=== PATIENT | male | born 2000 | race Caucasian/White ===

== ENCOUNTER 2020-05-04 10:39 | Observation (INO) | payer OTHER ==
[~2020-05-04] VITALS: Ht 188 cm; Wt 98.5 kg
[2020-05-04] MEDS ORDERED: NS 1,000 ML IV ONE (12:30)
[2020-05-04 13:52] LABS: BASO % 0.2 % (0.0-1.0); EOS % 0.2 % (0.0-3.0); HEMATOCRIT 44.5 % (42.0-52.0); HEMOGLOBIN 14.8 g/dl (13.5-17.5); LYMPH # 1.4 10^3/uL (1.5-5.0); LYMPH % 8.9 % (24.0-44.0); MEAN CORPUSCULAR HGB CONC 33.3 g/dl (32.0-36.5); MEAN CORPUSCULAR VOLUME 84.3 fl (80.0-96.0); MONO # 1.4 10^3/uL (0.0-0.8); MONO % 8.8 % (0.0-5.0); NEUTROPHILS # 13.2 10^3/uL (1.5-8.5); NEUTROPHILS % 81.4 % (36.0-66.0); PLATELET COUNT, AUTOMATED 195 10^3/uL (150-450); RED BLOOD COUNT 5.28 10^6/uL (4.30-6.10); WHITE BLOOD COUNT 16.2 10^3/uL (4.0-10.0)
[2020-05-04 14:15] LABS: BLOOD UREA NITROGEN 11 MG/DL (7-18); CALCIUM LEVEL 9.3 MG/DL (8.5-10.1); CARBON DIOXIDE LEVEL 28 MEQ/L (21-32); CHLORIDE LEVEL 101 MEQ/L (98-107); GLUCOSE, FASTING 89 MG/DL (70-100); POTASSIUM SERUM 3.9 MEQ/L (3.5-5.1); SODIUM LEVEL 138 MEQ/L (136-145)
[2020-05-04] MEDS ORDERED: ISOVUE-370 76% 100ML VIAL As Ordered ONE (14:46)
[2020-05-04] MEDS ORDERED: AMPICILLIN SOD/SULBACTAM SOD 3 GM in D5W MINI-BAG PLUS 100 ML IV ONE (15:15)
--- NOTE | 2020-05-04 15:21 | REP ---
INDICATION: peritonsillar abscess. COMPARISON: None. TECHNIQUE: Bolus 75 mL Isovue 370 scanning through the and neck with coronal and sagittal reconstructions. FINDINGS: The left side of the oropharynx demonstrates tonsillar fullness and a 2.3 x 2.2 x 2.1 cm hypodensity within the tonsil displaces portion of the airway towards the right and represents a peritonsillar abscess. Right tonsil was unremarkable. At night pad is slightly thickened. I do not see significant prevertebral swelling. The nasopharynx his mildly narrowed inferiorly by a thickened edematous uvula. The oropharynx is patent. The hypopharynx grossly intact larynx and subglottic trachea intact. The submandibular and parotid glands are unremarkable. There is a jugulodigastric and anterior cervical chain adenopathy in the carotid space left greater than right as reactive nodes. Bone windows show reversal of cervical lordosis in the upper cervical spine centered at C4. No fracture or destructive lesion craniocervical junction intact the maxilla and mandible were grossly intact skull base was unremarkable mastoid and sphenoid sinuses clear posterior ethmoid air cells with some mucosal thickening there is minor mucosal thickening in the floor of the left maxillary sinus. Frontal sinuses are clear IMPRESSION: There is a 2.3 x 2.2 x 2.1 cm left peritonsillar abscess with edema extending into the uvula down the left lateral oropharyngeal wall. Displaces the airway to towards the right but the oropharynx is a patent airway. The nasopharyngeal airway inferiorly is slightly narrowed by edematous uvula. Adjacent adenopathy in the left jugulodigastric and anterior cervical chain at the carotid space. No other significant finding. <Electronically signed by Troy Bernal > 05/04/20 2116
[2020-05-04] MEDS ORDERED: dexameTHASONE 20MG/5ML VIAL (J1100 PER 1MG) IV ONE (15:30)
--- NOTE | 2020-05-04 15:50 | HPEPDOC ---
General Date of Admission 05/04/20 Date of Service: May 04, 2020 Chief Complaint The patient is a 19-year-old male admitted with a reason for visit of Sore Throat. Source: Patient Exam Limitations: No limitations Timing/Duration: Day(s) Severity: Moderate History of Present Illness Patient is 19 years old male without significant past medical history presented to the hospital with difficulties in swallowing. Patient stated that difficulties in swallowing started 5-6 days ago associated with chills and montiel bmandibular area swelling. In ER CT was done and showed There is a 2.3 x 2.2 x 2.1 cm left peritonsillar abscess with edema extending into the uvula down the left lateral oropharyngeal wall. Displaces the airway to towards the right but the oropharynx is a patent airway. The nasopharyngeal airway inferiorly is slightly narrowed by edematous uvula. Adjacent adenopathy in the left jugulodigastric and anterior cervical chain at the carotid space. No other significant finding. ENT Dr. Neil was contacted by ER, he will do incision and drainage today. Home Medications No Active Prescriptions or Reported Meds Allergies Coded Allergies: No Known Allergies (Unverified , 05/04/20) Past Medical History Medical History No past medical history Family History I personally reviewed, family history and found not pertinent Social History * Smoker: Denies Alcohol: Denies Drugs: denies A-FIB/CHADSVASC A-FIB History Current/History of A-Fib/PAF?: No Current PO Anticoag Therapy: No Review of Systems Constitutional: Reports: Chills; Denies: Fever Eyes: Denies: Pain ENT: Reports: Sore Throat (difficulties in swallowing), Other Symptoms; Denies: Head Aches Skin: Denies: Rash, Lesions Pulmonary: Denies: Dyspnea Cardiovascular: Denies: Chest Pain, Palpitations Gastrointestinal: Denies: Nausea Genitourinary: Denies: Dysuria, Frequency Hematologic: Denies: Bruising Endocrine: Denies: Polyphagia Musculoskeletal: Denies: Back Pain, Shoulder Pain Neurological: Denies: Weakness Psych: Reports: Mood Normal Physical Examination General Exam: Positive: Alert, Cooperative Eye Exam: Positive: PERRLA ENT Exam: Positive: Atraumatic, Pharyngeal Edema (left-sided) Neck Exam: Positive: Supple; Negative: JVD Chest Exam: Positive: Clear to auscultation Heart Exam: Positive: Rate Normal Telemetry: Positive: No significant arrhythmia Abdomen Exam: Positive: Normal bowel sounds Extremity Exam: Negative: Clubbing, Cyanosis Skin Exam: Positive: Nl turgor and temperature Neuro Exam: Positive: Strength at 5/5 X4 ext, Cranial Nerves 3-12 NL Psych Exam: Positive: Mental status NL Vital Signs Vital Signs Date Time Temp Pulse Resp B/P (MAP) Pulse Ox O2 Delivery O2 Flow Rate FiO2 05/04/20 13:53 05/04/20 10:39 99.0 93 18 99 Room Air Laboratory Data Labs 24H Laboratory Tests 2 05/04/20 13:05: Immature Granulocyte % (Auto) 0.5, Neutrophils (%) (Auto) 81.4H, Lymphocytes (%) (Auto) 8.9L, Monocytes (%) (Auto) 8.8H, Eosinophils (%) (Auto) 0.2, Basophils (%) (Auto) 0.2, Neutrophils # (Auto) 13.2H, Lymphocytes # (Auto) 1.4L, Monocytes # (Auto) 1.4H, Eosinophils # (Auto) 0.0, Basophils # (Auto) 0.0, Nucleated Red Blood Cells % (auto) 0.0, Anion Gap 9, Calcium Level 9.3, Coronavirus (COVID- 19)(PCR) NEGATIVE CBC/BMP Laboratory Tests 05/04/20 13:05 Microbiology Microbiology 05/04/20 Blood Culture, Received Pending 05/04/20 Blood Culture, Received Pending Assessment/Plan Patient is 19 years old male without significant past medical history presented to the hospital with difficulties in swallowing. Patient stated that difficulties in swallowing started 5-6 days ago associated with chills and submandibular area swelling. In ER CT was done and showed There is a 2.3 x 2.2 x 2.1 cm left peritonsillar abscess with edema extending into the uvula down the left lateral oropharyngeal wall. Displaces the airway to towards the right but the oropharynx is a patent airway. The nasopharyngeal airway inferiorly is slightly narrowed by edematous uvula. Adjacent adenopathy in the left jugulodigastric and anterior cervical chain at the carotid space. No other significant finding. ENT Dr. Neil was contacted by ER, he will do incision and drainage today Problems (1) Tonsillar abscess Status: Acute Problem Text: Incision and drainage will be done today by Dr. Neil IV fluid Unasyn IV Patient received Decadron Pain management Plan / VTE VTE Prophylaxis Ordered?: Yes CHRISTIANO LEON DO May 04, 2020 15:50
[2020-05-04] MEDS: ACETAMINOPHEN TAB 650MG DOSE (2X325MG) PO PRN ×2 (16:38→22:38)
[2020-05-04 17:39] VITALS: BP 136/86
[2020-05-04] MEDS: D5W/0.9% SODIUM CHLORIDE 1,000 ML IV SCH (17:54)
[2020-05-04] MEDS ORDERED: ONDANSETRON 4MG/2ML VIAL As Ordered ONE (19:09)
[2020-05-04] MEDS ORDERED: fentaNYL 100 MCG/2 ML INJECTION (J3010) As Ordered ONE (19:09)
[2020-05-04] MEDS ORDERED: MIDAZOLAM INJ 2MG/2ML VIAL (J2250 PER 1MG) As Ordered ONE (19:09)
[2020-05-04] MEDS ORDERED: propofoL 200 MG/20 ML VIAL As Ordered ONE (19:09)
[2020-05-04] MEDS ORDERED: SUGAMMADEX SODIUM 500 MG/5 ML VIAL (BRIDION) As Ordered ONE (19:09)
[2020-05-04] MEDS ORDERED: ROCURONIUM BROMIDE 50 MG/5 ML VIAL As Ordered ONE (19:09)
[2020-05-04] MEDS ORDERED: dexameTHASONE 4 MG/ML 1ML VIAL (J1100 PER 1MG) As Ordered ONE ×2 (19:09→19:13)
[2020-05-04] MEDS ORDERED: CLINDAMYCIN INJ 900MG/6ML VIAL As Ordered ONE (19:11)
[2020-05-04] MEDS ORDERED: LIDOCAINE 2% 100MG/5ML SDV (FOR ANES.) As Ordered ONE (19:11)
[2020-05-04] MEDS ORDERED: LIDOCAINE W/EPINEPHRINE 1% 20ML VIAL As Ordered ONE (19:11)
[2020-05-04] MEDS ORDERED: LIDOCAINE 5% OINT 30 GM As Ordered ONE (19:16)
[2020-05-04] MEDS ORDERED: HYDROmorphone HCL 2 MG/ML 1ML VIAL (J1170) As Ordered ONE (19:44)
[2020-05-04] MEDS ORDERED: METOCLOPRAMIDE INJ 10MG/2ML VIAL (J2765 PER 1) IV PRN (20:30)
[2020-05-04] MEDS ORDERED: ONDANSETRON 4MG/2ML VIAL IV PRN (20:30)
[2020-05-04] MEDS ORDERED: LR 1,000 ML IV SCH (20:30)
[2020-05-04] MEDS ORDERED: PERCOCET 5MG/325MG TAB PO PRN (20:30)
[2020-05-04] MEDS ORDERED: fentaNYL 100 MCG/2 ML INJECTION (J3010) IV PRN (20:30)
[2020-05-04 21:00] VITALS: BP 143/89
[2020-05-04 22:00] VITALS: BP 122/71
[2020-05-04 22:30] VITALS: BP 130/74
[2020-05-04] MEDS: AMPICILLIN SOD/SULBACTAM SOD 3 GM in D5W MINI-BAG PLUS 100 ML IV SCH (22:37)
[2020-05-04 23:57] VITALS: BP 157/71
[2020-05-05] MEDS: D5W/0.9% SODIUM CHLORIDE 1,000 ML IV SCH ×2 (00:26→09:27)
[2020-05-05 00:51] VITALS: BP 115/59
[2020-05-05 01:44] VITALS: BP 127/66
[2020-05-05 06:43] VITALS: BP 118/69
[2020-05-05] MEDS: AMPICILLIN SOD/SULBACTAM SOD 3 GM in D5W MINI-BAG PLUS 100 ML IV SCH (06:54)
[2020-05-05] MEDS: ACETAMINOPHEN TAB 650MG DOSE (2X325MG) PO PRN (06:54)
[2020-05-05] MEDS ORDERED: ENOXAPARIN 40MG/0.4ML SYRINGE (J1650 PER 10MG) SC SCH (09:00)
[2020-05-05 09:17] LABS: HEMATOCRIT 44.2 % (42.0-52.0); HEMOGLOBIN 14.8 g/dl (13.5-17.5); MEAN CORPUSCULAR HEMOGLOBIN 28.2 pg (27.0-33.0); MEAN CORPUSCULAR HGB CONC 33.5 g/dl (32.0-36.5); MEAN CORPUSCULAR VOLUME 84.4 fl (80.0-96.0); PLATELET COUNT, AUTOMATED 223 10^3/uL (150-450); RED BLOOD COUNT 5.24 10^6/uL (4.30-6.10); WHITE BLOOD COUNT 15.4 10^3/uL (4.0-10.0)
[2020-05-05 09:35] LABS: BLOOD UREA NITROGEN 9 MG/DL (7-18); CALCIUM LEVEL 8.8 MG/DL (8.5-10.1); CARBON DIOXIDE LEVEL 28 MEQ/L (21-32); CHLORIDE LEVEL 105 MEQ/L (98-107); CREATININE FOR GFR 0.99 MG/DL (0.70-1.30); GLUCOSE, FASTING 144 MG/DL (70-100); MAGNESIUM LEVEL 2.1 MG/DL (1.8-2.4); POTASSIUM SERUM 4.3 MEQ/L (3.5-5.1); SODIUM LEVEL 141 MEQ/L (136-145)
[2020-05-05 10:00] VITALS: BP 123/61
[2020-05-05] MEDS ORDERED: ACET1TAB55 PO (10:03)
[2020-05-05] MEDS ORDERED: AUGM875T28 PO ×2 (10:03→11:06)
--- NOTE | 2020-05-05 16:32 | DS.PDOC ---
Discharge Summary General Date of Admission May 04, 2020 at 15:40 Date of Discharge 05/05/20 Discharge Summary PROCEDURES PERFORMED DURING STAY: [None]. ADMITTING DIAGNOSES: Tonsillar abscess DISCHARGE DIAGNOSES: Tonsillar abscess COMPLICATIONS/CHIEF COMPLAINT: Tonsillar Abcess. HISTORY OF PRESENT ILLNESS: Patient is 19 years old male without significant past medical history presented to the hospital with difficulties in swallowing. Patient stated that difficulties in swallowing started 5-6 days ago associated with chills and submandibular area swelling. In ER CT was done and showed There is a 2.3 x 2.2 x 2.1 cm left peritonsillar abscess with edema extending into the uvula down the left lateral oropharyngeal wall. Displaces the airway to towards the right but the oropharynx is a patent airway. The nasopharyngeal airway inferiorly is slightly narrowed by edematous uvula. Adjacent adenopathy in the left jugulodigastric and anterior cervical chain at the carotid space. No other significant finding. ENT Dr. Neil was contacted by ER, he will do incision and drainage today. HOSPITAL COURSE: During hospital stay following issue addressed Tonsillar abscess Incision and drainage was done today by Dr. Neil IV fluid Unasyn IV Patient received Decadron Pain management DISCHARGE MEDICATIONS: Please see below. ALLERGIES: Please see below. PHYSICAL EXAMINATION ON DISCHARGE: VITAL SIGNS: Please see below. Physical Examination General Exam: Positive: Alert, Cooperative Eye Exam: Positive: PERRLA ENT Exam: Positive: Atraumatic, Pharyngeal Edema (left-sided) Neck Exam: Positive: Supple; Negative: JVD Chest Exam: Positive: Clear to auscultation Heart Exam: Positive: Rate Normal Telemetry: Positive: No significant arrhythmia Abdomen Exam: Positive: Normal bowel sounds Extremity Exam: Negative: Clubbing, Cyanosis Skin Exam: Positive: Nl turgor and temperature Neuro Exam: Positive: Strength at 5/5 X4 ext, Cranial Nerves 3-12 NL Psych Exam: Positive: Mental status NL LABORATORY DATA: Please see below. IMAGING: [facility] NAME: DARLENE PANG DATE OF : 2000 AGE: 19 SEX: M REPORT #: [id number] ROOM: ED TECHNOLOGIST: ESMER DOCTOR: AMBREEN HERNÁNDEZ MD Ordered for Date&Time: 05/04/20 1218 cc: [~ rep ct ivnm] Service Date&Time: This report is in Signed status. If this report is in a DRAFT status it has not yet been reviewed by the radiologist for accuracy. Thank you for having your radiology procedures performed at [facility] RADIOLOGY REPORT Date&Time printed: [~ rep prt dt last] [~ rep prt tm last] Page 2 of 2 [facility] [address] [place] [id number] RADIOLOGY REPORT This report is in Signed status. If this report is in a DRAFT status it has not yet been reviewed by the radiologist for accuracy. Thank you for having your radiology procedures performed at [facility] RADIOLOGY REPORT Date&Time printed: [~ rep prt dt last] [~ rep prt tm last] Page 1 of 1 Bolus 75 mL Isovue 370 scanning through the and neck with coronal and sagittal reconstructions. FINDINGS: The left side of the oropharynx demonstrates tonsillar fullness and a 2.3 x 2.2 x 2.1 cm hypodensity within the tonsil displaces portion of the airway towards the right and represents a peritonsillar abscess. Right tonsil was unremarkable. At night pad is slightly thickened. I do not see significant prevertebral swelling. The nasopharynx his mildly narrowed inferiorly by a thickened edematous uvula. The oropharynx is patent. The hypopharynx grossly intact larynx and subglottic trachea intact. The submandibular and parotid glands are unremarkable. There is a jugulodigastric and anterior cervical chain adenopathy in the carotid space left greater than right as reactive nodes. Bone windows show reversal of cervical lordosis in the upper cervical spine centered at C4. No fracture or destructive lesion craniocervical junction intact the maxilla and mandible were grossly intact skull base was unremarkable mastoid and sphenoid sinuses clear posterior ethmoid air cells with some mucosal thickening there is minor mucosal thickening in the floor of the left maxillary sinus. Frontal sinuses are clear IMPRESSION: There is a 2.3 x 2.2 x 2.1 cm left peritonsillar abscess with edema extending into the uvula down the left lateral oropharyngeal wall. Displaces the airway to towards the right but the oropharynx is a patent airway. The nasopharyngeal airway inferiorly is slightly narrowed by edematous uvula. Adjacent adenopathy in the left jugu lodigastric and anterior cervical chain at the carotid space. No other significant finding. <Electronically signed by Troy Bernal > 05/04/20 1518 DD: Troy Bernal MD 05/04/201510 DT: NELIDA 05/04/201517 DS: JAMEL 05/04/20151005/04/201510 [~ rep ct labl] PROGNOSIS: Excellent ACTIVITY: [As tolerated]. DIET: Regular DISPOSITION: 01 Home, Self-Care. ITEMS TO FOLLOWUP ON ON OUTPATIENT: Follow-up with PCP DISCHARGE CONDITION: [Stable]. TIME SPENT ON DISCHARGE: Greater than 20 minutes. Vital Signs/I&Os Vital Signs Date Time Temp Pulse Resp B/P (MAP) Pulse Ox O2 Delivery O2 Flow Rate FiO2 05/05/20 10:00 97.7 74 16 123/61 (81) 98 Room Air I&O- Last 24 Hours up to 6 AM 05/05/20 05:59 Intake Total 1880 ml Output Total 1 ml Balance 1879 ml Laboratory Data Labs 24H Laboratory Tests 2 05/05/20 08:59: Nucleated Red Blood Cells % (auto) 0.0, Anion Gap 8, Calcium Level 8.8, Magnesiu m Level 2.1 CBC/BMP Laboratory Tests 05/05/20 08:59 Microbiology Microbiology 05/04/20 Blood Culture - Preliminary, Resulted No growth after 24 hours . All specim... 05/04/20 Blood Culture - Preliminary, Resulted No growth after 24 hours . All specim... 05/04/20 Gram Stain - Final, Resulted 05/04/20 Abscess Culture, Resulted Pending 05/04/20 Anaerobic Culture, Resulted Pending Discharge Medications Scheduled Amoxicillin/Potassium Clav (Augmentin 875-125 Tablet) 1 Each Tablet, 1 TAB PO BID Scheduled PRN Acetaminophen (Acetaminophen) 325 Mg Tablet, 650 MG PO Q4H PRN for PAIN OR FEVER Allergies Coded Allergies: No Known Allergies (Unverified , 05/04/20) CHRISTIANO LEON DO May 05, 2020 16:32
--- NOTE | 2020-05-08 13:46 | RO ---
DATE OF OPERATION: 05/04/2020 PREOPERATIVE DIAGNOSIS: Left peritonsillar abscess. POSTOPERATIVE DIAGNOSIS: Left peritonsillar abscess. PROCEDURE PERFORMED: Incision and drainage of left peritonsillar abscess. SURGEON: Aba Neil MD ANESTHESIA: General. CLINICAL PREAMBLE: This 19-year-old man presented to the emergency department of [facility] this afternoon complaining of four day history of sore throat. He has not been treated with antibiotic prior to presentation to the emergency department. Physical examination revealed evidence of edematous left soft palate. CT neck revealed evidence of large left peritonsillar abscess. Management options including surgery listed above have been discussed with the patient. He understood and consented to the procedure. PROCEDURE: The patient was identified in pre-holding area and brought to the operating room in satisfactory condition. He was placed in supine position on the operating table, the patient received general anesthesia followed by orotracheal intubation. The patient was prepped and draped in usual fashion for the procedure. The Tete-Carlos mouth gag was inserted and suspended. The left tonsil was found to be edematous with some necrotic tissue over the superior pole. The mucosa overlying the superior pole of the left tonsil was infiltrated with 1% Lidocaine with 1:100,000 Epinephrine. Incision was made using sickle knife, the peritonsillar space was entered using the Schnitz dissector. Copious amount of purulent material was expressed. Cultures for C&S, gram stain and anaerobic cultures were obtained; approximately 7 mL of purulent discharge were cleared. The peritonsillar space was then irrigated using warm saline solution mixed with 900 mg of Clindamycin in 1 liter of normal saline solution. At the end of the procedure sponge and instrument counts were correct. No complications were encountered. Estimated blood loss less than 5 mL. Anesthesia was reversed and patient was extubated and brought to the recovery room in stable condition. LIZZIE
== END 2020-05-05 11:58 | disposition home or self-care (01) ==
LOC: M ED 10:39 → M ED INP 15:40 → ENRESERV 16:53 → M MS5PR 17:40
PROVIDERS: ADMIT Internal Medicine; ATTEND Internal Medicine
DX: J36 Peritonsillar abscess (principal)
CPT/HCPCS: 36415; 42700; 70491; 80048; 83735; 85025; 85027; 86850; 86900; 86901; 87040; 87070; 87075; 87076; 87205; 96361; 96365; 96366; 96375; 99284; J1100; J1170; J2250; J2405; J3010; Q9967; U0002

== ENCOUNTER 2020-07-31 10:03 | Day surgery (SDC) | payer OTHER ==
[~2020-07-31] VITALS: Ht 190.5 cm; Wt 99.8 kg
[~2020-07-31 10:03] MED LIST: ACET1TAB55 PO; AUGM875T28 PO; LR 1,000 ML IV ONE
[2020-07-31] MEDS ORDERED: fentaNYL 100 MCG/2 ML INJECTION (J3010) As Ordered ONE ×2 (15:26→17:09)
[2020-07-31] MEDS ORDERED: propofoL 200 MG/20 ML VIAL As Ordered ONE (15:26)
[2020-07-31] MEDS ORDERED: ONDANSETRON 4MG/2ML VIAL As Ordered ONE (15:26)
[2020-07-31] MEDS ORDERED: ROCURONIUM BROMIDE 50 MG/5 ML VIAL As Ordered ONE (15:26)
[2020-07-31] MEDS ORDERED: MIDAZOLAM INJ 2MG/2ML VIAL (J2250 PER 1MG) As Ordered ONE (15:26)
[2020-07-31] MEDS ORDERED: LIDOCAINE 2% 100MG/5ML SDV (FOR ANES.) As Ordered ONE (15:26)
[2020-07-31] MEDS ORDERED: METOCLOPRAMIDE INJ 10MG/2ML VIAL (J2765 PER 1) As Ordered ONE (15:48)
[2020-07-31] MEDS ORDERED: SUGAMMADEX SODIUM 500 MG/5 ML VIAL (BRIDION) As Ordered ONE (16:32)
[2020-07-31] MEDS ORDERED: oxyCODONE 5MG TAB As Ordered ONE (17:09)
[2020-07-31] MEDS ORDERED: oxyCODONE 5MG TAB PO PRN (17:30)
[2020-07-31] MEDS ORDERED: HYDROMORPHONE HCL 0.5 MG/ 0.5 ML SYRINGE (J1170 PER 1) IV PRN (17:30)
[2020-07-31] MEDS ORDERED: LR 1,000 ML IV SCH (17:30)
[2020-07-31] MEDS ORDERED: fentaNYL 100 MCG/2 ML INJECTION (J3010) IV PRN (17:30)
[2020-07-31] MEDS ORDERED: ONDANSETRON 4MG/2ML VIAL IV PRN (17:30)
[2020-07-31] MEDS ORDERED: LR 1,000 ML IV ONE (17:30)
[2020-07-31 18:40] VITALS: BP 135/63
--- NOTE | 2020-08-16 10:42 | RO ---
OPERATIVE NOTE DATE OF OPERATION: 07/31/2020 PREOPERATIVE DIAGNOSIS: Chronic tonsillitis and history of recurrent peritonsillar abscess. POSTOPERATIVE DIAGNOSIS: PROCEDURE: SURGEON: Aba Neil MD CORE STICKER: ANESTHESIA: General. CLINICAL PREAMBLE: This 19-year-old man has had peritonsillar abscess drained in the end of 2019. The patient also has history of chronic tonsillitis. Management options including tonsillectomy have been discussed. The patient consented to the procedure. DESCRIPTION OF PROCEDURE: Patient was identified in preoperative holding and brought to the operating room in stable condition. In supine position on the operating table, patient received general anesthesia followed by orotracheal intubation without incident. Patient was prepped and draped in the usual fashion for the procedure. The Tete-Carlos mouth gag was inserted and suspended. The right tonsil was medialized using curved Allis forceps. Mucosal incision was made over the superior pole of the right tonsil using the Coblator wand set at 7 for Coblation. The tonsillar capsule was identified and dissection was carried out along this plane to excise the right tonsil. The left tonsil was then similarly dissected out. At the end of the procedure both tonsil beds were free of bleeding. Estimated blood loss was less than 10 mL. No complication was encountered. Sponge and instrument counts were correct at the end of the procedure. General anesthesia was reversed and patient was extubated and brought to the recovery room in stable condition.
== END 2020-07-31 18:40 | disposition home or self-care (01) ==
LOC: M SDC 10:03
PROVIDERS: ATTEND Otolaryngology
DX: J35.01 Chronic tonsillitis (principal); F17.220 Nicotine dependence, chewing tobacco, uncomplicated
CPT/HCPCS: 42826; 88302; J1170; J2250; J2405; J2765; J3010

== ENCOUNTER 2020-08-04 22:24 | Day surgery (SDC) | payer OTHER ==
[~2020-08-04] VITALS: Ht 190.5 cm; Wt 97.7 kg
[~2020-08-04 22:24] MED LIST changes: -LR 1,000 ML IV ONE
--- OUTSIDE RECORDS SUMMARY | 2020-08-04 22:29 | CCD | Continuity of Care Document ---
Author Author Dinesh SILVERIO II, PA-C Organization Unknown Address [address], [address] [place] [address] Phone [phone] Care Team Providers Care Attendant Sales Name Role Phone Allan Cardona M.D. AUTM [phone] Problems Description No Active Problems Social History Type Date Description Comments Sex Unknown ETOH Use Denies alcohol use Tobacco Use Start: Unknown Non Smoker Allergies, Adverse Reactions, Alerts Description No Known Drug Allergies Medications Active Medications SIG Qnty Indications Ordering Provide r Date Amoxicillin 1 bid-strength unknown Unknown 0 Immunizations Description No Information Available Vital Signs Date Vital Result Comment 05/08/2020 11:28am Height 75 inches 6'3" Weight 221.00 lb BMI (Body Mass Index) 27.6 kg/m2 [place] Body Weight 196 lb Weight 100.246 kg Results Description No Information Available Procedures Description No Information Available Medical Devices Description No Information Available Encounters Description No Information Available Assessments Date Code Description Provider 05/08/2020 J36 Peritonsillar abscess Torsten orourke II, PA-C 05/08/2020 J35.01 Chronic tonsillitis Torsten Silverio II, PA-C Plan of Treatment 05/08/2020 - Torsten Silverio II, PA-C* J36 Peritonsillar abscess* Comments:* resolving. * Follow up:* * J35.01 Chronic tonsillitis Functional Status Description No Information Available Mental Status Description No Information Available Referrals Refer to Reason for Referral Status Appt Aba Renteria MD PERITONSILLAR ABSCESS OFFI CE CONSULT NEW OR ESTAB PT (1) 05/02/2020-10/29/2020 OFFICE/OUTPATIENT VISIT ESTAB (3) 05/02/2020- 05/02/2021 Scheduled 05/08/[address] [address] [phone]
--- OUTSIDE RECORDS SUMMARY | 2020-08-04 22:29 | CCD | Continuity of Care Document ---
Author Author Dinesh SILVERIO II, PA-C Organization Unknown Address [address] [place] [address], [address] [place] [address] Phone [phone] Care Team Providers Care [employer] Name Role Phone Allan Cardona M.D. AUTM [phone] Problems Description No Active Problems Social History Type Date Description Comments Sex Unknown ETOH Use Denies alcohol use Tobacco Use Start: Unknown Non Smoker Allergies, Adverse Reactions, Alerts Description No Known Drug Allergies Medications Description No Active Medications Immunizations Description No Information Available Vital Signs Date Vital Result Comment 06/27/2020 7:55am Height 75 inches 6'3" Weight 221.00 lb BMI (Body Mass Index) 27.6 kg/m2 [place] Body Weight 196 lb Weight 100.246 kg BSA (Body Surface Area) 2.29 m2 05/08/2020 11:28am Height 75 inches 6'3" Weight 221.00 lb BMI (Body Mass Index) 27.6 kg/m2 [place] Body Weight 196 lb Weight 100.246 kg BSA (Body Surface Area) 2.29 m2 Results Description No Information Available Procedures Description No Information Available Medical Devices Description No Information Available Encounters Type Date Location Provider Dx Diagnosis Office Visit 05/08/2020 11:15a [facility] Torsten orourke II, PA-C J35.01 Chronic tonsillitis Assessments Date Code Description Provider 06/27/2020 J35.01 Chronic tonsillitis Torsten Silverio II, PA-C 05/08/2020 J35.01 Chronic tonsillitis Torsten Silverio II, PA-C Plan of Treatment No Information Available Functional Status Description No Information Available Mental Status Description No Information Available Referrals Refer to Reason for Referral Status Appt Date Aba Neil MD PERITONSILLAR ABSCESS OFFI CE CONSULT NEW OR ESTAB PT (1) 05/02/2020-10/29/2020 OFFICE/OUTPATIENT VISIT ESTAB (3) 05/02/2020- 05/02/2021 Scheduled 05/08/2020 [address] [place] [address] [phone]
--- OUTSIDE RECORDS SUMMARY | 2020-08-04 22:29 | CCD ---
Author Author [facility] Organization [facility] Address Unknown Phone Unavailable Care Team Providers Care Sharepoint Net Developer Name Role Phone Jean Claude II, Torsten PA Unavailable Unavailable Jean Claude II, Torsten PA Unavailable Unavailable Jean Claude II, Torsten PA Unavailable Unavailable Jean Claude II, Torsten PA Unavailable Unavailable Jean Claude II, Torsten PA Unavailable Unavailable Jean Claude II, Torsten PA Unavailable Unavailable Jean Claude II, Torsten PA Unavailable Unavailable Jean Claude II, Torsten PA Unavailable Unavailable Jean Claude II, Torsten PA Unavailable Unavailable Jean Claude II, Torsten PA Unavailable Unavailable Jean Claude II, Torsten PA Unavailable Unavailable Jean Claude II, Torsten PA Unavailable Unavailable Jean Claude II, Torsten PA Unavailable Unavailable Jean Claude II, Torsten PA Unavailable Unavailable Jean Claude II, Torsten PA Unavailable Unavailable Jean Claude II, Torsten PA Unavailable Unavailable Jean Claude II, Torsten PA Unavailable Unavailable Re-disclosure Warning The records that you are about to access may contain information from federally-assisted alcohol or drug abuse programs. If such information is present, then the following federally mandated warning applies: This information has been disclosed to you from records protected by federal confidentiality rules (42 CFR part 2). The federal rules prohibit you from making any further disclosure of this information unless further disclosure is expressly permitted by the written consent of the person to whom it pertains or as otherwise permitted by 42 CFR part 2. A general authorization for the release of medical or other information is NOT sufficient for this purpose. The Federal rules restrict any use of the information to criminally investigate or prosecute any alcohol or drug abuse patient.The records that you are about to access may contain highly sensitive health information, the redisclosure of which is protected by Article 27-F of the [place] State Public Health law. If you continue you may have access to information: Regarding HIV / AIDS; Provided by facilities licensed or operated by the [facility] Office of Mental Health; or Provided by the [facility] Office for People With Developmental Disabilities. If such information is present, then the following [facility] mandated warning applies: This information has been disclosed to you from confidential records which are protected by state law. State law prohibits you from making any further disclosure of this information without the specific written consent of the person to whom it pertains, or as otherwise permitted by law. Any unauthorized further disclosure in violation of state law may result in a fine or custodial sentence or both. A general authorization for the release of medical or other information is NOT sufficient authorization for further disc losure. Encounters Encounter Providers Location Date Indications Data Source(s ) Outpatient Attender: Torsten Neil/Syl/Chung/Rein christopher 06/27/2020 07:00:00 AM EST [facility] ([facility], ) Outpatient Attender: Torsten Frias/Chung/Rein christopher 05/08/2020 10:15:00 AM EST [facility] ([facility], ) Medications Medication Brand Name Start Date Product Form Dose Route Admi nistrative Instructions Pharmacy Instructions Status Indications Reaction Description Data Source(s) 7.5-325 mg/15 mL 07/31/2020 12:00:00 AM EST solution 300 TAKE 15ML BY MOUTH EVERY 6 HOURS NEEDED FOR PAIN MAXIMUM DAILY DOSE = 60ML TAKE 15ML BY MOUTH EVERY 6 HOURS NEEDED FOR PAIN MAXIMUM DAILY DOSE = 60ML SOLD: 07/31/2020 [facility] Acetaminophen 21.7 MG/ML / Hydrocodone Bitartrate 0.5 MG/ML Oral Solution Hydrocodone Bitartrate/Acetaminophen 07/31/2020 12:00:00 AM EST ORAL active [facility] ([facility], ) Ibuprofen 20 MG/ML Oral Suspension Ibuprofen 07/31/2020 12:00:00 AM EST ORAL active [facility] ([facility], ) No Active Medications 06/27/2020 12:00:00 AM EST completed [facility] ([facility], ) Insurance Providers Payer name Policy type / Coverage type Policy ID Covered green party ID Covered green party's relationship to monahan Policy Monahan Plan Information [facility] ACTIVE DUTY [id number] O UNAVAILABLE UNAVAILA BLE Results ID Date Data Source [id number] 07/31/2020 04:28:00 PM EST [facility] ([facility]) Name Value Range Interpretation Code Description Data Susie rce(s) Supporting Document(s) Surgical pathology study Laboratory test result [facility] ([facility]) FINAL DIAGNOSIS AB - Bilateral tonsils, tonsillectomy: Florid follicular lymphoid hyperplasia. 08/02/20201029 CLINICAL DIAGNOSIS Tonsillitis, chronic 08/01/2020949 GROSS DIAGNOSIS A - Received in formalin labeled "right tonsil" is a 3.8 x 3 x 2 cm portion of tonsil. The mucosal lining is smooth. Sectioning does not reveal any gross lesion. Marketing Communications Assistant in one. B - Received in formalin labeled "left tonsil" is a 3.8 x 3.5 x 1.5 cm tonsil. The mucosal lining is smooth. Sectioning does not reveal any gross lesion. Marketing Communications Assistant in one. GUSTAVO 08/01/2020949 Signed Maico Fernandez MD 08/02/20200 ID Date Data Source [id number] 07/26/2020 09:57:00 AM EST [facility] Name Value Range Interpretation Code Description Data Susie rce(s) Supporting Document(s) SARS coronavirus 2 RNA Not Detected [facility] [place] This lab was ordered by [facility] Laboratory and reported by [facility]. Procedure Vital Signs ID Date Data Source UNK Name Value Range Interpretation Code Description Data Source(s) Body surface area Derived from formula 2.29 m2 2.29 m2 [facility] ([facility]) Body weight 100.246 kg 100.246 kg [facility] ([facility]) [place] body weight 196 [lb_av] 196 [facility]lb_av[facility] Body mass index (BMI) [Ratio] 27.6 kg/m2 27.6 k g/m2 [facility] ([facility]) Body weight 221.00 [lb_av] 221.00 [lb_av] [facility] ([facility]) Body height 75 [in_i] 75 [in_i] [facility] ([facility]) 6'3" Body surface area Derived from formula 2.29 m2 2.29 m2 [facility] ([facility]) Body weight 100.246 kg 100.246 [facility] [place] body weight 196 [lb_av] 196 [lb_av] [facility] ([facility]) Body mass index (BMI) [Ratio] 27.6 kg/m2 27.6 k g/m2 [facility] ([facility]) Body weight 221.00 [lb_av] 221.00 [lb_av] [facility] ([facility]) Body height 75 [in_i] 75 [in_i] [facility] ([facility]) 6'3" Body surface area Derived from formula 2.29 m2 2.29 m2 [facility] ([facility]) Body weight 100.246 kg 100.246 kg [facility] ([facility]) [place] body weight 196 [lb_av] 196 [lb_av] [facility] ([facility]) Body mass index (BMI) [Ratio] 27.6 kg/m2 27.6 k g/m2 [facility] ([facility]) Body weight 221.00 [lb_av] 221.00 [lb_av] [facility] ([facility]) Body height 75 [in_i] 75 [in_i] [facility] ([facility]) 6'3"
[2020-08-04] MEDS ORDERED: HYDR5SYR2 PO (22:31)
[2020-08-04] MEDS ORDERED: NS 1,000 ML IV ONE ×2 (23:00→23:30)
[2020-08-04 23:22] LABS: BASO % 0.3 % (0.0-1.0); EOS # 0.3 10^3/uL (0.0-0.5); EOS % 2.5 % (0.0-3.0); HEMATOCRIT 46.2 % (42.0-52.0); HEMOGLOBIN 15.5 g/dl (13.5-17.5); LYMPH # 1.7 10^3/uL (1.5-5.0); LYMPH % 14.5 % (24.0-44.0); MEAN CORPUSCULAR HGB CONC 33.5 g/dl (32.0-36.5); MEAN CORPUSCULAR VOLUME 83.4 fl (80.0-96.0); MONO # 0.8 10^3/uL (0.0-0.8); NEUTROPHILS # 8.6 10^3/uL (1.5-8.5); NEUTROPHILS % 75.3 % (36.0-66.0); PLATELET COUNT, AUTOMATED 252 10^3/uL (150-450); RED BLOOD COUNT 5.54 10^6/uL (4.30-6.10); WHITE BLOOD COUNT 11.4 10^3/uL (4.0-10.0)
[2020-08-04 23:39] LABS: INR 1.06; PARTIAL THROMBOPLASTIN TIME 30.9 SECONDS (24.2-38.5)
[2020-08-04 23:46] LABS: ALBUMIN 3.9 GM/DL (3.2-5.2); ALT/SGPT 23 U/L (12-78); BILIRUBIN,DIRECT 0.2 MG/DL (0.0-0.2); BILIRUBIN,TOTAL 0.8 MG/DL (0.2-1.0); BLOOD UREA NITROGEN 17 MG/DL (7-18); CARBON DIOXIDE LEVEL 28 MEQ/L (21-32); CHLORIDE LEVEL 99 MEQ/L (98-107); CREATININE FOR GFR 1.08 MG/DL (0.70-1.30); GLUCOSE, FASTING 119 MG/DL (70-100); POTASSIUM SERUM 3.6 MEQ/L (3.5-5.1); SODIUM LEVEL 136 MEQ/L (136-145); TOTAL PROTEIN 7.2 GM/DL (6.4-8.2)
[2020-08-04 23:51] LABS: RSV AMPLIFICATION NEGATIVE (NEGATIVE)
--- OUTSIDE RECORDS SUMMARY | 2020-08-04 23:55 | CCD ---
Author Author [facility] Organization [facility] Address Unknown Phone Unavailable Care Team Providers Care Alumni Relations Coordinator Name Role Phone Jean Claude II, Torsten [...] is protected by Article 27-F of the [place] State Public Health law. If you continue you may have access to information: Regarding HIV / AIDS; Provided by facilities licensed or operated by the [facility] Office of Mental Health; or Provided by the [facility] Office for People With Developmental Disabilities. If such information is present, then the following [facility] mandated warning applies: This information has [...] law may result in a fine or chcf sentence or both. A general authorization for the release of medical or other information is NOT sufficient authorization for further disc losure. Encounters Encounter Providers Location Date Indications Data Source(s ) Outpatient Attender: Torsten Neil/Syl/Chung/Rein christopher 06/27/2020 07:00:00 AM EST [facility] ([facility], ) Outpatient Attender: Torsten Frias/Chung/Rein christopher 05/08/2020 10:15:00 AM EST [facility] ([facility], ) Medications Medication Brand Name Start Date [...] 07/31/2020 12:00:00 AM EST ORAL active [facility] ([facility], ) Ibuprofen 20 MG/ML Oral Suspension Ibuprofen 07/31/2020 12:00:00 AM EST ORAL active [facility] ([facility], ) No Active Medications 06/27/2020 12:00:00 AM EST completed [facility] ([facility], ) Insurance Providers Payer name Policy type / Coverage type Policy ID Covered libertarian ID Covered libertarian's relationship to monahan Policy Monahan Plan Information [facility] ACTIVE DUTY [id number] O UNAVAILABLE UNAVAILA BLE Results ID Date Data Source [id number] 07/31/2020 04:28:00 PM EST [facility] ([facility]) Name Value Range Interpretation Code Description Data Susie rce(s) Supporting Document(s) Surgical pathology study Laboratory test result [facility] ([facility]) FINAL DIAGNOSIS AB - Bilateral tonsils, tonsillectomy: Florid follicular lymphoid hyperplasia. 08/02/20201029 CLINICAL DIAGNOSIS Tonsillitis, chronic 08/01/2020949 GROSS DIAGNOSIS A - Received in formalin labeled "right tonsil" is a 3.8 x 3 x 2 cm portion of tonsil. The mucosal lining is smooth. Sectioning does not reveal any gross lesion. Egg Candler in one. B - Received in formalin labeled "left tonsil" is a 3.8 x 3.5 x 1.5 cm tonsil. The mucosal lining is smooth. Sectioning does not reveal any gross lesion. Egg Candler in one. GUSTAVO 08/01/2020949 Signed Maico Fernandez MD 08/02/20200 ID Date Data Source [id number] 07/26/2020 09:57:00 AM EST [facility] Name Value Range Interpretation Code Description Data Susie rce(s) Supporting Document(s) SARS coronavirus 2 RNA Not Detected [facility] [place] This lab was ordered by [facility] Laboratory and reported by [facility]. Procedure Vital Signs ID Date Data Source UNK Name Value Range Interpretation Code Description Data Source(s) Body surface area Derived from formula 2.29 m2 2.29 m2 [facility] ([facility]) Body weight 100.246 kg 100.246 kg [facility] ([facility]) [place] body weight 196 [lb_av] 196 [lb_av] [facility] Body mass index (BMI) [Ratio] 27.6 kg/m2 27.6 k g/m2 [facility] ([facility]) Body weight 221.00 [lb_av] 221.00 [lb_av] [facility] ([facility]) Body height 75 [in_i] 75 [in_i] [facility] ([facility]) 6'3" Body surface area Derived from formula 2.29 m2 2.29 m2 [facility] ([facility]) Body weight 100.246 kg 100.246 kg [facility] [place] body weight 196 [lb_av] 196 [lb_av] [facility] ([facility]) Body mass index (BMI) [Ratio] 27.6 kg/m2 27.6 k g/m2 [facility] ([facility]) Body weight 221.00 [lb_av] 221.00 [lb_av] [facility] ([facility]) Body height 75 [in_i] 75 [in_i] [facility] ([facility]) 6'3" Body surface area Derived from formula 2.29 m2 2.29 m2 [facility] ([facility]) Body weight 100.246 kg 100.246 kg [facility] ([facility]) [place] body weight 196 [lb_av] 196 [lb_av] [facility] ([facility]) Body mass index (BMI) [Ratio] 27.6 kg/m2 27.6 k g/m2 [facility] ([facility]) Body weight 221.00 [lb_av] 221.00 [lb_av] [facility] ([facility]) Body height 75 [in_i] 75 [in_i] [facility] ([facility]) 6'3"
--- OUTSIDE RECORDS SUMMARY | 2020-08-04 23:57 | CCD ---
Author Author [facility] Organization [facility] Address Unknown Phone Unavailable Care Team Providers Care Fire Code Inspector Name Role Phone Jean Claude II, Torsten PA Unavailable Unavailable Jean Claude II, Torsten PA Unavailable Unavailable Jean Claude II, Torsten PA Unavailable Unavailable Jean Cladue II, Torsten PA Unavailable Unavailable Jean Claude [...] Torsten PA Unavailable Unavailable Jean Claude II, Tortsen PA Unavailable Unavailable Jean Claude II, Torsten [...] is protected by Article 27-F of the [place] State Public Health law. If you continue you may have access to information: Regarding HIV / AIDS; Provided by facilities licensed or operated by the [facility] Office of Mental Health; or Provided by the [facility] Office for People With Developmental Disabilities. If such information is present, then the following [facility] mandated warning applies: This information has [...] law may result in a fine or fci sentence or both. A general authorization for the release of medical or other information is NOT sufficient authorization for further disc losure. Encounters Encounter Providers Location Date Indications Data Source(s ) Outpatient Attender: Torsten Neil/Syl/Chung/Rein christopher 06/27/2020 07:00:00 AM EST [facility] ([facility], ) Outpatient Attender: Torsten Frias/Chung/Rein christopher 05/08/2020 10:15:00 AM EST [facility] ([facility], ) Medications Medication Brand Name Start Date [...] 07/31/2020 12:00:00 AM EST ORAL active [facility] ([facility], ) Ibuprofen 20 MG/ML Oral Suspension Ibuprofen 07/31/2020 12:00:00 AM EST ORAL active [facility] ([facility], ) No Active Medications 06/27/2020 12:00:00 AM EST completed [facility] ([facility], ) Insurance Providers Payer name Policy type / Coverage type Policy ID Covered constitution party ID Covered constitution party's relationship to monahan Policy Monahan Plan Information [facility] ACTIVE DUTY [id number] O UNAVAILABLE UNAVAILA BLE Results ID Date Data Source [id number] 07/31/2020 04:28:00 PM EST [facility] ([facility]) Name Value Range Interpretation Code Description Data Susie rce(s) Supporting Document(s) Surgical pathology study Laboratory test result [facility] ([facility]) FINAL DIAGNOSIS AB - Bilateral tonsils, tonsillectomy: Florid follicular lymphoid hyperplasia. 08/02/20201029 CLINICAL DIAGNOSIS Tonsillitis, chronic 08/01/2020949 GROSS DIAGNOSIS A - Received in formalin labeled "right tonsil" is a 3.8 x 3 x 2 cm portion of tonsil. The mucosal lining is smooth. Sectioning does not reveal any gross lesion. Home Health Travel Pt in one. B - Received in formalin labeled "left tonsil" is a 3.8 x 3.5 x 1.5 cm tonsil. The mucosal lining is smooth. Sectioning does not reveal any gross lesion. Home Health Travel Pt in one. GUSTAVO 08/01/2020949 Signed Maico Fernandez MD 08/02/20200 ID Date Data Source [id number] 07/26/2020 09:57:00 AM EST [facility] Name Value Range Interpretation Code Description Data Susie rce(s) Supporting Document(s) SARS coronavirus 2 RNA Not Detected [facility] [place] This lab was ordered by [facility] Laboratory and reported by [facility]. Procedure Vital Signs ID Date Data Source UNK Name Value Range Interpretation Code Description Data Source(s) Body surface area Derived from formula 2.29 m2 2.29 m2 [facility] ([facility]) Body weight 100.246 kg 100.246 kg [facility] ([facility]) [place] body weight 196 [lb_av] 196 [lb_av] [facility] Body mass index (BMI) [Ratio] 27.6 kg/m2 27.6 k g/m2 [facility] ([facility]) Body weight 221.00 [lb_av] 221.00 [lb_av] [facility] ([facility]) Body height 75 [in_i] 75 [in_i] [facility] ([facility]) 6'3" Body surface area Derived from formula 2.29 m2 2.29 m2 [facility] ([facility]) Body weight 100.246 kg 100.246 kg [facility] [place] body weight 196 [lb_av] 196 [lb_av] [facility] ([facility]) Body mass index (BMI) [Ratio] 27.6 kg/m2 27.6 k g/m2 [facility] ([facility]) Body weight 221.00 [lb_av] 221.00 [lb_av] [facility] ([facility]) Body height 75 [in_i] 75 [in_i] [facility] ([facility]) 6'3" Body surface area Derived from formula 2.29 m2 2.29 m2 [facility] ([facility]) Body weight 100.246 kg 100.246 kg [facility] ([facility]) [place] body weight 196 [lb_av] 196 [lb_av] [facility] ([facility]) Body mass index (BMI) [Ratio] 27.6 kg/m2 27.6 k g/m2 [facility] ([facility]) Body weight 221.00 [lb_av] 221.00 [lb_av] [facility] ([facility]) Body height 75 [in_i] 75 [in_i] [facility] ([facility]) 6'3"
[2020-08-04] MEDS ORDERED: propofoL 200 MG/20 ML VIAL As Ordered ONE (23:58)
[2020-08-04] MEDS ORDERED: MIDAZOLAM INJ 2MG/2ML VIAL (J2250 PER 1MG) As Ordered ONE (23:58)
[2020-08-04] MEDS ORDERED: fentaNYL 100 MCG/2 ML INJECTION (J3010) As Ordered ONE (23:58)
[2020-08-04] MEDS ORDERED: LIDOCAINE 2% 100MG/5ML SDV (FOR ANES.) As Ordered ONE (23:58)
[2020-08-04] MEDS ORDERED: SUCCINYLCHOLINE 100 MG/5 ML SYRINGE (J0330) As Ordered ONE (23:58)
[2020-08-05] MEDS ORDERED: ROCURONIUM BROMIDE 50 MG/5 ML VIAL As Ordered ONE (00:02)
[2020-08-05] MEDS ORDERED: METOCLOPRAMIDE INJ 10MG/2ML VIAL (J2765 PER 1) As Ordered ONE ×2 (00:21→00:22)
[2020-08-05] MEDS ORDERED: ONDANSETRON 4MG/2ML VIAL As Ordered ONE (00:22)
[2020-08-05] MEDS ORDERED: dexameTHASONE 4 MG/ML 1ML VIAL (J1100 PER 1MG) As Ordered ONE (00:22)
[2020-08-05 01:13] LABS: HEMATOCRIT 39.4 % (42.0-52.0); MEAN CORPUSCULAR HEMOGLOBIN 28.7 pg (27.0-33.0); MEAN CORPUSCULAR HGB CONC 33.2 g/dl (32.0-36.5); MEAN CORPUSCULAR VOLUME 86.4 fl (80.0-96.0); PLATELET COUNT, AUTOMATED 236 10^3/uL (150-450); RED BLOOD COUNT 4.56 10^6/uL (4.30-6.10); WHITE BLOOD COUNT 15.8 10^3/uL (4.0-10.0)
[2020-08-05 01:15] LABS: HEMOGLOBIN 13.1 g/dl (13.5-17.5)
[2020-08-05] MEDS ORDERED: oxyCODONE 5MG TAB PO PRN (01:30)
[2020-08-05] MEDS ORDERED: LR 1,000 ML IV SCH (01:30)
[2020-08-05] MEDS ORDERED: ONDANSETRON 4MG/2ML VIAL IV PRN (01:30)
[2020-08-05] MEDS ORDERED: fentaNYL 100 MCG/2 ML INJECTION (J3010) IV PRN (01:30)
[2020-08-05] MEDS ORDERED: ACETAMINOPH W/CODEINE #3 TAB UD PO PRN (01:30)
[2020-08-05 01:40] VITALS: BP 146/83
[2020-08-05] MEDS ORDERED: HYDR1SOL22 PO (01:45)
[2020-08-05] MEDS: LR 1,000 ML IV SCH ×2 (01:46→11:30)
[2020-08-05 02:45] VITALS: BP 118/58
[2020-08-05 03:50] VITALS: BP 110/58
[2020-08-05 04:50] VITALS: BP 112/74
[2020-08-05 05:50] VITALS: BP 129/76
--- NOTE | 2020-08-09 12:10 | RO ---
OPERATIVE NOTE DATE OF OPERATION: 08/05/2020 PREOPERATIVE DIAGNOSIS: Peritonsillar hemorrhage. POSTOPERATIVE DIAGNOSIS: Peritonsillar hemorrhage. PROCEDURE: Control postoperative tonsillar hemorrhage. SURGEON: Angel Luis Streeter MD INTERVENTIONAL TECH: ANESTHESIA: General. DESCRIPTION OF PROCEDURE: Under general anesthesia with the patient intubated, patient draped in usual manner. I identified a bleeding spot in the left tonsil bed which was pumping. I cauterized that area as well as some other areas that had some bleeding. There was minimal bleeding after patient intubated. I did pass a nasogastric tube to suction the stomach of 250 mL of blood. The patient tolerated the procedure well. I waited and when there was no bleeding, the patient was extubated and transferred to the recovery room in excellent condition.
--- NOTE | 2020-08-09 12:10 | HPE ---
HISTORY AND PHYSICAL DATE OF ADMISSION: 08/04/2020 ADMITTING DIAGNOSIS: Postoperative tonsillectomy hemorrhage. Patient seen in the emergency department, had been bleeding for a relatively short period of time. The patient coughed up about a liter of blood. Hemodynamically the patient was stable. Otherwise he was healthy. He was a nonsmoker. Examination showed there was a blood clot in the left tonsil fossa.
== END 2020-08-05 13:14 | disposition home or self-care (01) ==
LOC: M ED 22:24 → M SDC 23:45 → M MSPAV 08-05 01:32 → M SDC 08-05 13:14
PROVIDERS: ATTEND Otolaryngology
DX: J95.830 Postprocedural hemorrhage of a respiratory system organ or structure following a respiratory system procedure (principal)
CPT/HCPCS: 36415; 42962; 80048; 80076; 85025; 85027; 85610; 85730; 86850; 86900; 86901; 86920; 87631; 99285; J0330; J1100; J2250; J2405; J2765; J3010

== ENCOUNTER 2021-01-31 17:18 | Emergency (ER) | payer OTHER ==
[~2021-01-31] VITALS: Ht 190.5 cm; Wt 102.3 kg
[~2021-01-31 17:18] MED LIST changes: +HYDR1SOL22 PO; +HYDR5SYR2 PO
[2021-01-31 17:25] VITALS: BP 136/64
== END 2021-01-31 17:45 | disposition left against medical advice (07) ==
LOC: M ED 17:18
DX: Z53.21 Procedure and treatment not carried out due to patient leaving prior to being seen by health care provider (principal)